=== PATIENT | female | born 1965 | race Caucasian/White ===

== ENCOUNTER → 2019-10-07 | Outpatient (REF) | payer BC | LOC: M LAB REF 17:39 | PROVIDERS: ATTEND Internal Medicine | DX: G40.89 Other seizures (principal); Z79.899 Other long term (current) drug therapy ==

== ENCOUNTER → 2019-10-22 | Outpatient (REF) | payer BC | LOC: M LAB REF 11:24 | PROVIDERS: ATTEND Internal Medicine | DX: R30.0 Dysuria (principal) ==

== ENCOUNTER → 2020-10-18 | Outpatient (REF) | payer BC | LOC: M LAB REF 16:25 | PROVIDERS: ATTEND Internal Medicine | DX: G40.89 Other seizures (principal) ==

== ENCOUNTER → 2021-04-20 | Outpatient (REF) | payer BC, MEDICARE | LOC: M LAB REF 16:17 | PROVIDERS: ATTEND Internal Medicine | DX: G40.89 Other seizures (principal) ==

== ENCOUNTER → 2023-03-20 | Outpatient (CLI) | payer MEDICARE, BC ==
[~2023-03-20] MED LIST: LIDOCAINE 1% MDV 20ML VIAL As Ordered ONE
[2023-03-20 13:44] VITALS: TEMP 96.8
[2023-03-20 14:58] VITALS: BP 164/98; O2SAT 97
== END ==
LOC: M IRPRO 13:33
PROVIDERS: ATTEND Nurse Practitioner Family
DX: D48.5 Neoplasm of uncertain behavior of skin (principal)

== ENCOUNTER → 2023-05-30 | Outpatient (REF) | payer MEDICARE, BC ==
[2023-05-30 12:44] LABS: IONIZED CALCIUM 4.8 MG/DL (4.5-5.3)
[2023-05-30 15:09] LABS: PTH INTACT 35.7 PG/ML (18.5-88.0)
== END ==
LOC: M LAB REF 12:39
PROVIDERS: ATTEND Nurse Practitioner Family
DX: R53.83 Other fatigue (principal)